=== PATIENT | male | born 1970 | race Caucasian/White ===

== ENCOUNTER 2021-07-09 15:00 | Outpatient (RCR) | payer OTHER, SELFPAY ==
--- NOTE | 2021-07-09 17:38 | PTOPEVAL ---
Thank you for referring Saúl Ellison to [facility].? The patient is scheduled to be seen for therapy? ____x/week for ___ weeks. Please review, sign, date and return this plan of care ROSE. I agree with and certify that the following plan of care is medically necessary. Referring Physician Date Admitting Provider: Attending Provider: Zara Mukherjee, PHOTO OFFSET PRINTER Referring Provider: *PT Outpatient Evaluation Start: 07/09/21 16:37 Freq: Status: Active Protocol: Document 07/09/21 16:37 ACR (Rec: 07/09/21 17:34 ACR [id number]) Therapy Assessment Status Assessment Status Assessment Status Evaluation Evaluation Information Problem Diagnosis L rotator cuff repair Onset 05/12/21 Subjective Information Patient states that he fell 15 Query Text:As Reported By Patient/ foot off a ladder and tore Family his rotator cuff at work. He states he went to the ED immediately. He states that he worked up until the surgery then had two weeks off and returned back to work with R arm work only. He states he was in a sling after surgery for 4 weeks. He states that it was a 5cm tear and needs to go slow with the recovery per the doctor. He states he is unable to do any work activities at this time due to him not being able to use the L arm. The patient is restricted to passive range of motion only. Patient states that he returns to the doctor on 07/19/21. Prior Level of Function Activity Level (Last 3 Months) Occupation maintanence director Hand Dominance Right Activity of Daily Living Ability Independent Indoor/Home Mobility Independent Community Mobility Independent Stairs Ability Independent Functional Cognition (Planning, Shopping Independent , Taking Medications) Cooking Yes Cleaning Yes Laundry Yes Shopping Yes Driving Yes Pain Assessment Timing of Pain Assessment Timing of Pain Assessment Assessment Pain Scale Pain Scale Used Numeric (1 - 10) Self Report Pain Assessment Left Shoulder(s) Reported Pain Level 0
--- NOTE | 2021-08-06 17:33 | PTOPEVAL ---
Thank you for referring Saúl Ellison to [facility][Note 3].? The patient is scheduled to be seen for therapy? ____x/week for ___ weeks. Please review, sign, date and return this plan of care ROSE. I agree with and certify that the following plan of care is medically necessary. Referring Physician Date Admitting Provider: Attending Provider: Zara Mukherjee, PACKER Referring Provider: *PT Outpatient Evaluation Start: 07/09/21 16:37 Freq: Status: Active Protocol: Document 08/06/21 15:56 ACR (Rec: 08/06/21 17:28 ACR [id number]) Therapy Assessment Status Assessment Status Assessment Status Progress Evaluation Information Problem Diagnosis L RTC repair Onset 05/12/21 Subjective Information Patient reports that he feels Query Text:As Reported By Patient/ he should be further along but Family he is also impatient. He states that he is doing all of his exercises at home, but feels he could do more at home . Pain Assessment Timing of Pain Assessment Timing of Pain Assessment Assessment Pain Scale Pain Scale Used Numeric (1 - 10) Self Report Pain Assessment Left Shoulder(s) Reported Pain Level 3 Greatest Pain Intensity 5 Pain Score Pain Score 3: Self Report Interventions Used Interventions Used By Clinicians Activity or ADL's,Electrical Stimulation,Exercise,Heat Upper Extremity Range of Motion Scapular/ Shoulder Range of Motion Left Shoulder Flexion - Active 83 Shoulder Flexion - Passive 147 Shoulder Lateral Rotation - Passive 46 Upper Extremity Muscle Strength Testing General Upper Extremity Strength Gross Upper Extremity Strength Comments Still unable to test due to surgical precautions General Exercise General Exercises Exercise Description - standing cane scaption x 20 Query Text:Record Sets, Reps, - supine cane flexion x 20 Resistance, and Position reps - supine cane ER x 20 reps - standing cane IR x 20 reps - semirecumbent shoulder flexion x 20 x 2 - finger ladder x 10 - isometric flexion, ER, abduction, extension and IR of the left shoulder x 10 reps each x 5 second holds - table wash flex x 20 - pulleys x 5 minutes - lean aways x 10/10 Modalities Electrical Stimulation Left Shoulder Stimu
--- NOTE | 2021-08-30 13:42 | PTOPEVAL ---
Thank you for referring Saúl Ellison to [facility].? The patient is scheduled to be seen for therapy? ____x/week for ___ weeks. Please review, sign, date and return this plan of care ROSE. I agree with and certify that the following plan of care is medically necessary. Referring Physician Date Admitting Provider: Attending Provider: Zara Mukherjee, DIRECTOR OF EXTENSION WORK Referring Provider: *PT Outpatient Evaluation Start: 07/09/21 16:37 Freq: Status: Active Protocol: Document 08/23/21 16:30 [facility] (Rec: 08/30/21 13:42 [facility] [id number]) Therapy Assessment Status Assessment Status Assessment Status Re-evaluation Evaluation Information Problem Diagnosis L RTC repair Onset 05/12/21 Subjective Information patient reports he feels good Query Text:As Reported By Patient/ this date. he continues to Family display deficits in L shoulder strength and rom. he reports he is unable to return to prior level work duties yet this date due to having to lifting and carrying objects frequently. Pain Assessment Timing of Pain Assessment Timing of Pain Assessment Assessment Pain Scale Pain Scale Used Numeric (1 - 10) Self Report Pain Assessment Left Shoulder(s) Reported Pain Level 2 Pain Score Pain Score 2: Self Report Interventions Used Interventions Used By Clinicians Activity or ADL's,Education, Electrical Stimulation, Exercise,Heat,Manual Therapy Techniques,Standing Upper Extremity Range of Motion Scapular/ Shoulder Range of Motion Left Shoulder Flexion - Active 140 Shoulder Flexion - Passive 155 Shoulder Medial Rotation - Passive 65 Shoulder Lateral Rotation - Passive 65 Upper Extremity Muscle Strength Testing General Upper Extremity Strength Gross Upper Extremity Strength Comments L shoulder flex = 3+/5 L shoulder = 3/5 L shoulder IR = 4/5 Palpation Assessment Palpation Palpation noted trunk lean and L shoulder elevation with L shoulder flexion overhead General Exercise General Exercises Exercise Description - PROM in all planes x 15 Query Text:Record Sets, Reps, minutes Resistance, and Position - AROM into shoulder flexion x 20 in supine - modified plantigrade weight shifting into UE 10 s hold x 3 minutes
== END 2021-09-26 13:44 | disposition home or self-care (01) ==
LOC: CHSPT 15:00
PROVIDERS: Visit Provider Nurse Practitioner Family
DX: S46.012A Strain of muscle(s) and tendon(s) of the rotator cuff of left shoulder, initial encounter (principal); Z48.89 Encounter for other specified surgical aftercare
CPT/HCPCS: 97014; 97110; 97140; 97161; G0283

== ENCOUNTER 2023-07-28 09:20 | Emergency (ER) | payer OTHER, SELFPAY ==
[2023-07-28] VITALS (7 sets, daily range): BP systolic 148–179; BP diastolic 90–112; PULSE 69–80; RESP 16–20; TEMP 36.8–37; O2SAT 97–100
--- NOTE | ~2023-07-28 | CT_ITS ---
EXAMINATION: CTA BRAIN/CAROTID DATE: 07/28/2023 11:52 INDICATION: Hypertension. Immediate onset blurred vision and nausea after popped the neck. TECHNIQUE: Computed tomographic angiography (CTA) of the head and neck was performed with 100 mL Omni paque-350 intravenous contrast. Multiplanar reconstructions and maximum intensity projection 3D-recon structions of the carotid arteries and of the intracranial arteries were created by the technologist on a separate workstation. Precontrast CT of the head was also obtained. Automated exposure control and iterative reconstruction technique were employed.The dose-length product was 1950.57 mGy-cm. COMPARISON: None. FINDINGS: Carotid arteries: Thoracic aorta is normal in caliber with no evident atherosclerotic plaque or dissection. There is a tiny focus of atherosclerotic plaque with 0% stenosis of the right carotid bulb relative to normal di stal artery lumen diameter (NASCET criteria). There is no evident atherosclerotic plaque with 0% sten osis of the left carotid bulb relative to normal distal artery lumen diameter. Visualized upper lungs and superior mediastinum are unremarkable. In the left vertebral artery is dominant. There is no hussain dent stenosis or dissection along the bilateral vertebral arteries. Mild cervical spondylosis. Head: No acute intracranial hemorrhage, acute infarction or abnormal extra axial fluid collection. There is mild scattered white matter hypoattenuation consistent with chronic small vessel ischemic disease. Ventricles are normal and symmetric. No mass/mass effect. No abnormally enhancing brain lesions on po stcontrast imaging. The orbits, paranasal sinuses and mastoid air cells are normal. Intracranial arteries There is minimal atherosclerotic plaque without significant stenosis at the bilateral carotid bulbs. Left vertebral artery is dominant. There is no hemodynamically significant stenosis in the vertebral, basilar and internal carotid arteries. There are no aneurysms identified. Both A1 and P1 segments a re patent. There is also a patent left posterior communicating artery. Cerebral arterial arborization appears symmetric. IMPRESSION: 1. 0% stenosis of the right and left carotid bulbs relative to normal distal artery lumen diameter (N ASCET criteria). 2. Left vertebral artery is dominant. No evident stenosis or dissection along the bilateral vertebral arteries. 3. Unremarkable cerebral CT angiogram with no hemodynamic significant stenosis, aneurysm or thrombosi s. 4. Mild scattered white matter hypoattenuation consistent with chronic small vessel ischemic disease. No other acute intracranial process. Reviewed, dictated and finalized at location A. [employer] IMPRESSION: 1. 0% stenosis of the right and left carotid bulbs relative to normal distal ar danae lumen diameter (NASCET criteria). 2. Left vertebral artery is dominant. No evident stenosis or dissection along t he bilateral vertebral arteries. 3. Unremarkable cerebral CT angiogram with no hemodynamic significant stenosis, aneurysm or thrombosis. 4. Mild scattered white matter hypoattenuation consistent with chronic small ve ssel ischemic disease. No other acute intracranial process.
--- NOTE | 2023-07-28 10:32 | ED.GENADULT ---
HPI - General Adult General Chief complaint: Unspecified Stated complaint: high blood pressure Time Seen by Provider: 07/28/23 09:27 History of Present Illness HPI narrative: 52yo man was out driving when he felt and heard a loud pop in his neck. Immediately thereafter his vision became sluggish, wavy (felt like being underwater) and his noted his speech and thinking seemed slowed. No pain with this. Pt then felt another pop. No impairment to range of motion in his neck. No numbness, weakness, or facial asymmetry. No darkening of vision. Pt proceeded to vomit 4 times and then felt better. Feels much better now. Vision is returned to normal. BP was very high during the episode but he had not yet taken his daily Lisinopril or Amlodipine. Has not taken them reliably for the past 3 years, per his . Related Data Home Medications Medication Instructions Recorded Confirmed No Home Medications 07/28/23 07/28/23 Allergies Allergy/AdvReac Type Severity Reaction Status Date / Time No Known Allergies Allergy Verified 07/28/23 09:34 Review of Systems Review of Systems: All systems reviewed & are unremarkable except as noted in HPI and below Constitutional: Constitutional: Denies chills and Denies fever(s) Eyes: Eyes: Reports change in vision and Denies photophobia ENT: Denies dysphagia, Reports vertigo and Reports dizziness Cardiovascular: Cardiovascular: Denies chest pain Respiratory: Respiratory: Denies dyspnea Gastrointestinal: Gastrointestinal: Denies abdominal pain Musculoskeletal: Musculoskeletal: Denies back pain and Denies muscle cramps Neurologic: Reports confusion, Reports vertigo, Reports dizziness, Denies syncope, Denies focal weakness and Denies numbness PMFSH Social History Social History Smoking status: Never smoker Exam Const: General: healthy appearing, no acute distress and alert; No confusion Nutritional Appearance: well nourished Orientation/consciousness: patient oriented x3 HENMT: Head: normal to inspection Eyes: Conjunctivae: conjunctivae normal Pupils: Equal, round and reactive pupils present EOM: EOMs intact bilaterally Direct Ophthalmoscopy: no photophobia Neck: Neck: no meningeal signs Other: supple Resp: Effort & Inspection: normal respiratory effort Auscultation: clear to auscultation bilaterally Cardio: Rate: regular rate Rhythm: regular rhythm Heart sounds: no murmurs GI: Inspection: non-distended Skin: General skin exam: normal color, no jaundice and no pallor Neuro: General: patient oriented x3, moves all extremities, no focal motor deficits and CN's II-XI intact bilaterally Speech: normal speech Extrem: General: no clubbing, cyanosis or edema Course Vital Signs Vital signs: Vital Signs Temperature 37.0 C 07/28/23 09:22 Pulse Rate 80 07/28/23 09:22 Respiratory Rate 20 07/28/23 09:22 Blood Pressure 163/101 H 07/28/23 09:22 Pulse Oximetry 99 07/28/23 09:22 Oxygen Delivery Room Air 07/28/23 09:22 Temperature 37.0 C 07/28/23 09:22 Pulse Rate 80 07/28/23 11:10 Respiratory Rate 16 07/28/23 11:10 Blood Pressure 156/104 H 07/28/23 11:10 Pulse Oximetry 97 07/28/23 11:10 Oxygen Delivery Room Air 07/28/23 10:40 Medical Decision Making Medical Records Medical records reviewed: Yes I reviewed the external patient's medical records. Vital Signs Vital Signs: Vital Signs Temperature 37.0 C 07/28/23 09:22 Pulse Rate 80 07/28/23 09:22 Respiratory Rate 20 07/28/23 09:22 Blood Pressure 163/101 H 07/28/23 09:22 Pulse Oximetry 99 07/28/23 09:22 Oxygen Delivery Room Air 07/28/23 09:22 Temperature 37.0 C 07/28/23 09:22 Pulse Rate 80 07/28/23 11:10 Respiratory Rate 16 07/28/23 11:10 Blood Pressure 156/104 H 07/28/23 11:10 Pulse Oximetry 97 07/28/23 11:10 Oxygen Delivery Room Air 07/28/23 10:40
[2023-07-28 10:53] LABS: Basophils Absolute Auto 0.03 K/mm3 (0.00-0.10); Basophils Percent Auto 0.2 % (0.0-1.0); Eosinophils Absolute Auto 0.01 K/mm3 (0.02-0.50); Eosinophils Percent Auto 0.1 % (1.0-6.0); Hematocrit 52.8 % (40.0-54.0); Hemoglobin 17.3 g/dL (14.0-18.0); Immature Granulocyte Absolute 0.09 K/mm3 (0.00-0.00); Immature Granulocyte Percent A 0.7 % (0.0-0.0); Lymphocytes Absolute Auto 0.84 K/mm3 (1.10-4.50); Lymphocytes Percent Auto 6.9 % (18.0-42.0); Mean Corpuscular HGB Conc 32.8 g/dL (32.0-36.0); Mean Corpuscular Volume 85.4 fL (78.0-102.0); Mean Platelet Volume 9.9 fl (8.7-11.0); Monocytes Absolute Auto 0.64 K/mm3 (0.10-0.90); Monocytes Percent Auto 5.3 % (2.0-11.0); Neutrophils Absolute Auto 10.6 K/mm3 (1.7-7.2); Neutrophils Percent Auto 86.8 % (50.0-70.0); Platelet Count Result 281 K/mm3 (150-420); Red Blood Count 6.18 M/mm3 (4.70-6.10); Red Cell Distribution Width 13.8 % (11.6-14.4); White Blood Count 12.2 K/mm3 (4.8-10.8)
[2023-07-28 11:11] LABS: Alanine Aminotransferase 40 U/L (16-63); Alkaline Phosphatase 82 U/L (46-116); Anion Gap 9 mmol/L (8-16); Aspartate Amino Transferase 29 U/L (15-37); Bilirubin,Total 0.5 mg/dL (0.00-1.00); Blood Urea Nitrogen 9 mg/dL (7-18); Calcium 9.1 mg/dL (8.5-10.1); Carbon Dioxide 32 mmol/L (21-32); Chloride 102 mmol/L (98-108); Estimated CRCL calculation 140 ml/min; Estimated Glomerular Filt Rate > 60; Glucose 106 mg/dL (70-99); Osmolality Calculated 294 mOsm/kg (285-295); Potassium 4.6 mmol/L (3.5-5.1); Sodium 143 mmol/L (136-145); Total Protein 7.5 g/dL (6.4-8.2)
[2023-07-28 11:14] LABS: Magnesium 2.1 mg/dL (1.8-2.4)
[2023-07-28] MEDS: SODIUM CHLORIDE 0.9% IV 1,000 ML 999 ML IV CONT (11:48)
== END 2023-07-28 13:06 | disposition home or self-care (01) ==
PROVIDERS: Emergency Provider Emergency Medicine
DX: I10 Essential (primary) hypertension (principal); H53.9 Unspecified visual disturbance
CPT/HCPCS: 36415; 70496; 70498; 80053; 83735; 85025; 96360; 99284; J7030; Q9967